=== PATIENT | female | born 1950 | race Caucasian/White ===

== ENCOUNTER → 2025-04-10 | Outpatient (CLI) | payer MEDICARE ==
--- NOTE | 2025-04-10 17:33 | HMCIMG ---
EXAM: CT Thoracic Spine Without Intravenous Contrast. CLINICAL HISTORY: Thoracic spine pain. TECHNIQUE: Multidetector computed tomography of the thoracic spine was performed without intravenous contrast from T1 through L1. Thin axial images with coronal and sagittal reformations were obtained. Radiation dose optimization was achieved using automatic exposure control, size-based tube current and tube voltage modulation, and iterative reconstruction per ALARA principles. CONTRAST: Without. COMPARISON: None provided. FINDINGS: BONES: Vertebral body heights are preserved without acute compression deformity. There are multilevel degenerative changes characterized by anterior and marginal osteophytes. Facet joint hypertrophy is present at multiple thoracic levels. There is mild dextroscoliosis of the lower thoracic spine. No suspicious lytic or sclerotic osseous lesion is identified. No acute fracture or traumatic malalignment is identified. The visualized posterior elements are intact. Bony alignment is anatomic. DISCS / DEGENERATIVE CHANGES: There is significant multilevel intervertebral disc height loss. No large paracentral or lateralizing osteophyte complexes causing visible high-grade osseous canal compromise are identified by computed tomography. No significant neural foraminal stenosis. SOFT TISSUES: The prevertebral and paravertebral soft tissues are unremarkable. The partially visualized lungs and mediastinum are unremarkable for acute process within the limits of this examination. IMPRESSION: 1. Multilevel thoracic spondylosis with anterior and marginal osteophytes, significant intervertebral disc height loss, and facet arthropathy. 2. Mild dextroscoliosis of the lower thoracic spine. 3. No acute thoracic spine fracture or traumatic malalignment identified. /[place]
--- NOTE | 2025-04-10 17:35 | HMCIMG ---
EXAM: CT Lumbar Spine Without Intravenous Contrast CLINICAL HISTORY: Low back pain; scoliosis, unspecified. TECHNIQUE: Multidetector computed tomography of the lumbar spine was performed without intravenous contrast from T12 through S2. Thin-section axial images with sagittal and coronal reformations were obtained. Radiation dose was optimized using automatic exposure control and size-based tube current and tube voltage modulation with iterative reconstruction in accordance with ALARA principles. CONTRAST: Without; COMPARISON: None provided. FINDINGS: BONES: Vertebral body heights from L1 through S1 are maintained without acute fracture, lytic lesion, or sclerotic lesion. There is levoscoliosis of the lumbar spine. There is left lateral translocation at L3 on L4, L4 on L5, and L5 on S1. Endplate irregularities with subchondral cysts are present at L2, L3, and L4. Mild endplate sclerosis involves the L2, L3, L4, and L5 endplates. Multilevel anterior and marginal osteophytes are present. Posterior elements including facets, laminae, and pedicles are intact without fracture or malalignment. Sacroiliac joints are symmetric without erosions or widening; small intra-articular vacuum phenomenon is noted. Bony spinal canal: No CT evidence of osseous central canal stenosis or other remarkable in-canal osseous pathology. DISCS / DEGENERATIVE CHANGES: L1-L2: Intervertebral disc height preserved. No focal disc pathology. No central canal stenosis. No neural foraminal stenosis. L2-L3: Disc height is reduced. Diffuse circumferential disc bulge. Severe bilateral neural foraminal stenosis. No central canal stenosis. L3-L4: Disc height is reduced. Diffuse circumferential disc bulge. Severe bilateral neural foraminal stenosis. No central canal stenosis. L4-L5: Disc height is reduced. Diffuse circumferential disc bulge. Severe bilateral neural foraminal stenosis. No central canal stenosis. L5-S1: Disc height is reduced. No focal disc herniation identified. No central canal stenosis. No neural foraminal stenosis. Overall: Severe bilateral neural foraminal stenosis at L2-L3, L3-L4, and L4-L5 related to disc height loss and diffuse disc bulging; correlate for multilevel lumbar radiculopathy. No CT evidence of central canal stenosis. SOFT TISSUES: No prevertebral soft tissue swelling. Paraspinal musculature, including the psoas and erector spinae muscles, appears normal bilaterally. Aortic atherosclerotic calcification is mild. Recommendation: Lumbar spine magnetic resonance imaging is recommended for definitive assessment of nerve root impingement and the degree of soft-tissue and canal compromise. Correlate clinically and consider conservative management per protocol; if progressive neurologic deficits or intractable radicular pain are present, consider referral to spine surgery or pain management for further evaluation and treatment. IMPRESSION: 1. Severe bilateral neural foraminal stenosis at L2???L3, L3???L4, and L4???L5 related to disc height loss and diffuse disc bulging. 2. Degenerative lumbar spondylosis with levoscoliosis and left lateral translational changes at L3???L4, L4???L5, and L5???S1. 3. Multilevel endplate degenerative changes with subchondral cysts and sclerosis, and anterior/marginal osteophytes. 4. No CT evidence of central canal stenosis. 5. Incidental mild abdominal aortic atherosclerotic calcification; see report body for details. /[place]
== END | disposition home or self-care (01) ==
LOC: RAH 13:33
PROVIDERS: ATTEND Family Medicine
DX: M47.815 Spondylosis without myelopathy or radiculopathy, thoracolumbar region (principal); M51.360 Other intervertebral disc degeneration, lumbar region with discogenic back pain only; M48.061 Spinal stenosis, lumbar region without neurogenic claudication; M25.78 Osteophyte, vertebrae; M41.85 Other forms of scoliosis, thoracolumbar region; M53.86 Other specified dorsopathies, lumbar region; I70.0 Atherosclerosis of aorta
CPT/HCPCS: 72128; 72131